=== PATIENT | male | born 1940 | race Caucasian/White ===

== ENCOUNTER 2017-04-12 16:13 | Emergency (ER) | payer MEDICARE ==
[~2017-04-12] VITALS: Ht 177.8 cm; Wt 60.3 kg
[~2017-04-12 16:13] MED LIST: CEFDINIR300 MG PO; DEXILANT60 MG PO; LOVASTATIN20 MG PO; METOPROLOL TART50 MG PO; METRONIDAZOLE500 MG PO; NIFEDIPINE ER60 M1 PO; PANTOPRAZOLE SO40 MG PO; PROTONIX40 M1 PO; ULTRAM50 MG PO; Z.0.FLOMAX0.4 MG PO; Z.0.LOVASTATIN20 MG PO; Z.0.METOPROLOL SUCC5 PO
--- OUTSIDE RECORDS SUMMARY | 2017-04-12 16:16 | XMS REPORT ---
[facility] Address Unknown Phone Unavailable Care Team Providers Care [employer] Instrument Repairer Name Role Phone LYUBOV VILLARREAL Unavailable Unavailable NOE KIRAN Unavailable Unavailable KISHORE PHELPS Unavailable Unavailable KAROLYN CARLSON Unavailable Unavailable Problems This patient has no known problems. Allergies, Adverse Reactions, Alerts This patient has no known allergies or adverse reactions. Medications This patient has no known medications. Results Test Description Test Time Test Comments Text Results Atomic Results Result Comments CHEST SINGLE (PORTABLE) [place] [address] Patient Name: ROD LY MR #: [id number] : 1940 Age/Sex: 76/M Req #: [id number] Adm Physician: Ordered by: NOE CARTAGENA PARTS COORDINATOR Report #: [id number] Location: ER Room/Bed: Procedure: [id number] DX/CHEST SINGLE (PORTABLE) Exam Date: 02/13/17 Exam Time: 1245 REPORT STATUS: Signed PROCEDURE: A single AP view of the chest. COMPARISON: Portable chest 01/05/2017. INDICATIONS: FALL, HEAD, NECK PAIN FINDINGS: Lines/tubes: Metallic tip catheter is present with the tip projecting over the expected region of the upper thoracic spine. Lungs: The lungs are well inflated and clear. There is no evidence of pneumonia or pulmonary edema. Pleura : There is no pleural effusion or pneumothorax. Heart and mediastinum: The heart and the mediastinum are unremarkable. Atherosclerotic calcifications. Bones: No acute bony abnormality. Degenerative changes of the thoracic spine. IMPRESSION: No acute radiographic abnormality. Dictated by: Karey Fang M.D. on 02/13/2017 at 13:06 Electronically approved by: Karey Fang M.D. on 02/13/2017 at 13:06 Dictated By: KAREY FANG MD 1306 Transcribed By: KENDRICK on 02/13/17 1306 COPY TO: NOE MCCURDY NP CT BRAIN WO [place] [address] Patient Name: ROD LY MR #: [id number] : 1940 Age/Sex: 76/M Req #: [id number] Adm Physician: Ordered by: NOE CARTAGENA PARTS COORDINATOR Report #: [id number] Location: ER Room/Bed: Procedure: [id number] CT/CT BRAIN WO Exam Date: 02/13/17 Exam Time: 1245 REPORT STATUS: Signed Exam: Head CT without IV contrast History:Fall hit back of head Comparison studies: Head CTs of 01/05/2017 and 07/09/2011. Technique: Axial images were obtained from the skull base to the vertex. Coronal and sagittal images reconstructed from the axial data. Intravenous contrast: None Findings: Scalp/skull: No abnormalities. Extra- axial spaces: No masses. No fluid collections. Brain sulci: Mildly prominent. Ventricles: Mild compensatory dilatation. No hydrocephalus. Parenchyma: Confluent periventricular hypodensities in the supratentorial white matter are small vessel ischemic changes. There are small chronic lacunar infarcts in the right thalamus, left posterior putamen and in the body of the left caudate nucleus. No masses, acute hemorrhage, acute or chronic cortical vascular insults. Sellar/suprasellar region: No abnormalities. Craniocervical junction: Patent foramen magnum. No Chiari one malformation. Incidental findings: Atherosclerotic calcifications in the carotid siphons. Nonspecific persistent left mastoid opacification. Bilateral lens replacements related to previous cataract surgery. IMPRESSION: No acute abnormalities. No changes from the previous head CT of 01/05/2017. Chronic findings: 1. Mild generalized volume loss. 2. Moderate supratentorial small vessel ischemic changes. 3. Small chronic lacunar infarcts as described. Signed by: Dr. Fe Tamayo M.D. on 2016 1:53 PM Dictated By: FE TAMAYO MD 1350 Transcribed By: CARMELITA on 02/13/17 1359 COPY TO: NOE CARTAGENA NP CT CERVICAL SPINE WO [place] [address] Patient Name: ROD LY MR #: [id number] : 1940 Age/Sex: 76/M Req #: [id number] Adm Physician: Ordered by: NOE CARTAGENA NP Report #: [id number] Location: ER Room/Bed: Procedure: [id number] CT/CT CERVICAL SPINE WO Exam Date: 02/13/17 Exam Time: 1245 REPORT STATUS: Signed Exam: Cervical spine CT without IV contrast History: Trauma, fall Comparison studies: None Technique: Axial images were obtained through the cervical region. Coronal and sagittal images reconstructed from the axial data. Intravenous contrast: None Findings: Atlantoaxial articulation: Intact Alignment: Exaggeration of normal lordosis. Cervicomedullary junction: No abnormalities. Patent foramen magnum. Soft tissues: No gross abnormalities. Vertebrae : No fractures, neoplasm or infection. Degenerative changes: Multilevel anterior bridging osteophytosis most pronounced from C3 to C6. Similar findings can be seen with diffuse hepatic skeletal hyperostosis (DISH]. C2-C3: Mildly degenerated disc. Patent canal and foramina. C3-C4: Moderately degenerated disc. Disc osteophyte complex indents the thecal sac without canal stenosis. Moderate left and mild right foraminal stenosis due to uncovertebral facet arthrosis. C4-C5: Mildly degenerated disc. Mild canal stenosis due to disc bulge asymmetric to the right. Mild bilateral facet arthrosis. No significant foraminal stenosis. C5-C6: Moderately degenerated disc. Mild canal stenosis due to a disc osteophyte complex and central calcified disc protrusion versus ossified posterior longitudinal ligament. Moderate bilateral foraminal stenosis due to uncovertebral and facet arthrosis. C6-C7: Moderately degenerated disc with loss of disc height posteriorly. Discussed by complex indents the thecal sac but does not result in significant canal stenosis. Moderate bilateral foraminal stenosis due to uncovertebral facet arthrosis. C7-T1: Mildly degenerated disc. Patent canal and foramina. Incidental finding's: Atherosclerotic calcifications at the left cervical bifurcation-carotid bulb. IMPRESSION: 1. No cervical spine fracture or subluxation. 2. Degenerative changes as described. 3. Cannot adequately evaluate, spinal cord and or vascular abnormalities on the basis of this examination. The preliminary report was provided by Dr. Boateng at 1:26 PM on 02/13/2017. A final report was issued by Dr. Tamayo at 2:02 PM on 02/13/2017. Signed by: Dr. Fe Tamayo M.D. on 02/13/2017 2:03 PM Dictated By: FE TAMAYO MD 140 Transcribed By: CARMELITA on 02/13/171402 COPY TO: NOE CARTAGENA NP CT BRAIN WO [place] [address] Patient Name: ROD LY MR #: [id number] : 1940 Age/Sex: 76/M Req #: [id number] [facility] Physician: Ordered by: NOE KIRAN MD Report #: [id number] Location: ER Room/Bed: Procedure: [id number] CT/CT BRAIN WO Exam Date: 01/05/17 Exam Time: 2300 REPORT STATUS: Signed History:Syncope Comparison studies:CT head 07/19/2011 Technique: Axial images were obtained from the skull base to the vertex. Coronal and sagittal images reconstructed from the axial data. Intravenous contrast: None Findings: Scalp/skull: No abnormalities. Extra-axial spaces: No masses. No fluid collections. Brain sulci: Mildly prominent. Ventricles: Moderate compensatory dilatation. No hydrocephalus. Parenchyma: Scattered and confluent hypodensities in the supratentorial white matter are small vessel ischemic changes. Small chronic lacunar infarcts at the right thalamus, left caudate head and left subinsular region. No masses, hemorrhage, acute or chronic cortical vascular insults. Sellar/suprasellar region: No abnormalities. Craniocervical junction: Patent foramen magnum. No Chiari one malformation. Incidental findings: Atherosclerotic calcifications in the carotid siphons , vertebral arteries and basilar artery . Opacification of the left masseter cells, secondary to nonspecific inflammatory changes. Impression : No acute abnormalities. Chronic findings: 1. Mild generalized volume loss. 2. Moderate supratentorial white matter small vessel ischemic changes, progressed since previous examination. Signed by: DR Damián Sousa M.D. on 01/05/2017 11:32 PM Dictated By: DAMIÁN GARCIA MD 31 Transcribed By: CARMELITA on 01/05/172331 COPY TO: NOE KIRAN MD [facility] (NOT PORTABLE) [facility] [address] [place] [address] Patient Name: ROD LY MR #: [id number] : 1940 Age/Sex: 76/M Req #: [id number] Adm Physician: Ordered by: NOE KIRAN MD Report #: [id number] Location: ER Room/Bed: ___ Procedure: [id number] DX/CHEST SINGLE (NOT PORTABLE) Exam Date: 01/05/17 Exam Time: 2310 REPORT STATUS: Signed CHEST SINGLE (NOT PORTABLE), 01/05/2017 10:01 PM Technique: CHEST SINGLE ( NOT PORTABLE) Comparison: None available. Clinical history: Syncope Findings: Unremarkable appearance of the heart, mediastinum, lungs and pleural spaces. Neurostimulator lead projects over the lower thoracic spine. Impression: 1. Lines/Tubes: None 2. No acute abnormality. Signed by: Dr Janet Dorsey MD on 01/05/2017 11:46 PM Dictated By: JANET DORSYE MD 45 Transcribed By: CARMELITA on 01/05/172345 COPY TO: NOE KIRAN MD FOREARM LEFT 2 VIEW [place] [address] Patient Name: ROD LY MR #: [id number] : 1940 Age/Sex: 76/M Req #: [id number] Adm Physician: Ordered by: KISHORE PHELPS MD Report #: [id number] Location: ER Room/Bed: Procedure: DX/FOREARM LEFT 2 VIEW Exam Date: Exam Time: REPORT STATUS: Signed PROCEDURE: X-RAY LEFT FOREARM, TWO VIEWS COMPARISON: None. INDICATIONS: FALL, LEFT ARM PAIN FINDINGS: No acute, displaced fracture or dislocation. Partially visualized wrist and elbow joint spaces are well-maintained. Incidental note of exostosis from the distal humeral diaphysis, partially visualized. Surgical clips within the soft tissues of the volar forearm. CONCLUSION: No acute osseous abnormality. Dictated by: Fe Townsend M.D. on 11/11/2016 at 12: 02 Electronically approved by: Fe Townsend M.D. on 11/11/2016 at 12:02 Dictated By: FE TOWNSEND MD 1202 Transcribed By: KENDRICK on 11/11/16 1202 COPY TO : KISHORE PHELPS MD CT ABDOMEN/PELVIS WO [place] [address] Patient Name: ROD LY MR #: [id number] : 1940 Age/Sex: 76/M Req #: [id number] Adm Physician: Ordered by: JEOVANY URIARTE PARTS COORDINATOR Report #: [id number] Location: ER Room/Bed: Procedure: 9 CT/CT ABDOMEN/PELVIS WO Exam Date: 10/20/16 Exam Time: 1329 REPORT STATUS: Signed EXAM: CT Abdomen and Pelvis WITHOUT contrast INDICATION: Abdominal pain and diarrhea for 4 days. COMPARISON: None. TECHNIQUE: Abdomen and pelvis were scanned utilizing a multidetector helical scanner from the lung base to the pubic symphysis without administration of IV contrast. Absence of intravenous contrast decreases sensitivity for detection of focal lesions and vascular pathology. Coronal and sagittal reformations were obtained. Routine protocol was performed. IV CONTRAST: None. ORAL CONTRAST: Gastrografin and water mix. RADIATION DOSE: Total DLP: 296.42 mGy* cm Estimated effective dose: (DLP x 0.015 x size factor) mSv COMPLICATIONS: None FINDINGS: LINES and TUBES: None. LOWER THORAX: Unremarkable HEPATOBILIARY: No focal hepatic lesions. No biliary ductal dilation. GALLBLADDER: Mild sludge versus small calculi within the dependent portion of the gallbladder. No wall thickening. SPLEEN: No splenomegaly. PANCREAS: No focal masses or ductal dilatation. ADRENALS: 5 mm adenoma in the apex of the right adrenal gland. KIDNEYS/URETERS: No hydronephrosis. 1.3 cm cyst exophytic of the posterior interpolar region of the right kidney. 1.5 cm cyst in the upper pole of the right kidney on image 23 series 2. 0.0 cm cyst in the anterior interpolar region of the left kidney on image 27. Large bilobed simple appearing cyst exophytic of the upper pole of the left kidney measures 5.5 cm on image 16 series 2. Punctate nonobstructing calculus in the upper pole of the right kidney on image 33 series 2. 2 punctate nonobstructing calculi versus vascular calcification in the interpolar and lower pole of the right kidney respectively. GI TRACT: No abnormal distention, wall thickening, or evidence of bowel obstruction. Scattered sigmoid diverticula without CT evidence of diverticulitis. PELVIC ORGANS/BLADDER: Unremarkable. LYMPH NODES: No lymphadenopathy. VESSELS: Extensive atherosclerotic calcifications of the aorta and iliac arteries without aneurysmal dilatation. PERITONEUM / RETROPERITONEUM: No free air or fluid. BONES: Compression fracture of L1, and to a lesser degree L3. 1.4 cm sclerotic lesion in the left femoral neck suggestive of bone island. 3 mm bone island in the left femoral head. Status post left laminectomy at L4-L5. SOFT TISSUES: Battery pack in the subcutaneous left gluteal region. Neurostimulator lead enters the spinal canal at the T12-L1 level, with rotary electrodes partially visualized starting at the T10-T11 level. IMPRESSION: 1. No acute abdominal pelvic abnormality. Fluid attenuation within the rectosigmoid is nonspecific possibly due to gastroenteritis. 2. Gallbladder sludge and possibly small gallstones. 3. Moderate compression fracture deformity of L1 and mild compression deformity of L3 of uncertain age. Correlate for acute pain at this levels. 4. Punctate nonobstructing right nephrolithiasis. Signed by: Dr. Stefan Dalton M.D. on 2016 3:50 PM Dictated By: SOFÍA DALTON MD, MD 6620 Transcribed By: CARMELITA on 10/20/16 1550 COPY TO: JEOVANY URIARTE NP
--- NOTE | 2017-04-12 18:11 | Diagnostic Imaging Report ---
History:Fall from bed Comparison studies:None Technique: Axial images were obtained from the skull base to the vertex. Coronal and sagittal images reconstructed from the axial data. Intravenous contrast: None Findings: Scalp/skull: No abnormalities. Extra-axial spaces: No masses. No fluid collections. Brain sulci: Mildly prominent. Ventricles: Mild compensatory dilatation. No hydrocephalus. Parenchyma: Multiple confluent hypodensities in the supratentorial white matter are small vessel ischemic changes. Old lacunar infarct in the left putamen. No masses, hemorrhage, acute or chronic cortical vascular insults. Sellar/suprasellar region: No abnormalities. Craniocervical junction: Patent foramen magnum. No Chiari one malformation. Incidental findings: Right maxillary sinus mucosal thickening and partial opacification of left mastoid air cells. Atherosclerotic calcifications in the carotid siphons . Impression: No acute abnormalities. Chronic findings: 1. Mild generalized volume loss. 2. Moderate supratentorial white matter small vessel ischemic changes. A preliminary report was given by neuroradiology fellow Dr. Whelan at 6:10 PM on 04/12/2017. I have reviewed the study and agree with the findings in the preliminary report. Signed by: Dr. Tina Wiggins M.D. on 04/12/2017 8:13 PM
--- NOTE | 2017-04-12 18:16 | Diagnostic Imaging Report ---
History: Fall from bed Comparison studies: None Technique: Axial images were obtained through the cervical region.. Coronal and sagittal images reconstructed from the axial data.. Intravenous contrast: None Findings: Fractures: None. Soft tissues: No gross abnormalities. Atlantoaxial articulation: Intact. Alignment: Exaggerated lordosis. No scoliosis. Cervicomedullary junction: No abnormalities. The foramen magnum is patent. Soft tissues: No abnormalities. Vertebrae: No infection or neoplasm. Degenerative changes: Large anterior osteophytes from C3 through C6. C3-C4: Moderate degenerative disc disease. Moderate left foraminal stenosis due to facet and uncovertebral arthrosis. C4-C5: Posterior disc osteophyte complex results in mild canal stenosis. C5-C6: Moderate degenerative disc disease. Posterior disc osteophyte complex results in mild canal stenosis. Severe right and mild left foraminal stenosis due to facet and uncovertebral arthrosis. C6-C7: Moderate right and severe left foraminal stenosis due to facet and uncovertebral arthrosis. Incidental: Opacification of left mastoid air cells and middle ear cavity. IMPRESSION: 1. No acute cervical spine abnormalities. 2. Ligament, spinal cord and or vascular abnormalities cannot be excluded on the basis of this examination. 3. Cervical spondylosis as detailed above. A preliminary report was given by neuroradiology fellow Dr. Whelan at 6:16 PM on 04/12/2017. I have reviewed the study and agree with the findings in the preliminary report Signed by: Dr. Tina Wiggins M.D. on 04/12/2017 8:18 PM
== END 2017-04-12 20:06 | disposition home or self-care (01) ==
LOC: ER 16:13
DX: M54.2 Cervicalgia (principal); S00.83XA Contusion of other part of head, initial encounter; S16.1XXA Strain of muscle, fascia and tendon at neck level, initial encounter; W07.XXXA Fall from chair, initial encounter; Y92.008 Other place in unspecified non-institutional (private) residence as the place of occurrence of the external cause; I10 Essential (primary) hypertension; Z85.828 Personal history of other malignant neoplasm of skin; Z87.891 Personal history of nicotine dependence
CPT/HCPCS: 70450; 72125; 99282

== ENCOUNTER → 2017-10-10 | Outpatient (CLI) | payer MEDICARE ==
--- NOTE | 2017-10-10 14:15 | Diagnostic Imaging Report ---
PROCEDURE:X-RAY MODIFIED BARIUM SWALLOW COMPARISON:None. INDICATIONS:Not provided. DISCUSSION:Fluoroscopic examination was performed in conjunction with speech pathology, during swallowing of a variety of thin and thick liquid consistencies. CONCLUSION:Laryngeal penetration and tracheal aspiration were noted upon administration of thick pure and thin liquid consistencies. Please see report from speech pathology for full details. Dictated by: Arnold Townsend M.D. on 10/10/2017 at 14:20 Electronically approved by: Arnold Townsend M.D. on 10/10/2017 at 14:20
== END ==
LOC: DX 09:25
PROVIDERS: ATTEND Internal Medicine
DX: R13.11 Dysphagia, oral phase (principal)
CPT/HCPCS: 74230; 92611; G8996; G8997